=== PATIENT | male | born 1995 | race Caucasian/White ===

== ENCOUNTER 2017-04-04 11:11 | Emergency (ER) | payer MEDICAID ==
[~2017-04-04] VITALS: Ht 177.8 cm; Wt 77.1 kg
--- NOTE | 2017-04-04 11:36 | Emergency Room Report ---
History of Present Illness General Chief Complaint: Lower Extremity Injury Source: Patient Present Illness HPI Patient is a 21-year-old male who presented after increased right ankle pain after injury last night. The patient had been playing basketball when he inverted his right ankle. Patient was having increased pain with ambulation. Patient had no prior ankle injury. He reported having pain to his ankle but did not have any pain to his foot. Pain is sharp in nature. He had no numbness or weakness distally. Allergies: Coded Allergies: No Known Allergies (Unverified , 04/04/17) Patient History Past Medical History: see triage record Reviewed Nursing Documentation: PMH: Agreed, PSxH: Agreed Nursing Documentation-PMH Past Medical History: No Stated History Review of Systems All Other Systems: negative except mentioned in HPI Physical Exam Vital Signs Date Time Temp Pulse Resp B/P Pulse Ox O2 Delivery O2 Flow Rate FiO2 04/04/17 11:18 98.2 78 14 119/67 97 Room Air Sp02 EP Interpretation: reviewed, normal General Appearance: normal inspection, well appearing, no apparent distress, alert, GCS 15 Head: atraumatic ENT: normal ENT inspection, hearing grossly normal, normal voice Neck: normal inspection, full range of motion, supple, no bony tend Respiratory: normal inspection, lungs clear, normal breath sounds, no respiratory distress, no retraction, no wheezing Cardiovascular #1: regular rate, rhythm, no edema Gastrointestinal: normal inspection, normal bowel sounds, non tender, soft, no guarding, no hernia Genitourinary: no CVA tenderness Musculoskeletal: back normal, normal range of motion, swelling - right ankle swelling, slight tenderness to posterior lateral malleolus Neurologic: normal inspection, alert, responsive, speech normal Psychiatric: normal inspection, judgement/insight normal, mood/affect normal Skin: normal inspection, normal color, no rash Medical Decision Making Diagnostic Impression: Primary Impression: Ankle sprain ER Course Patient presented for ankle pain. Differential diagnosis included was not limited to sprain, fracture, dislocation, cellulitis, vascular insufficiency. X -ray imaging of the ankle was ordered. X-ray imaging of the right ankle interpreted by me showed normal bony alignment without a fracture. Soft tissue swelling was noted. The patient was advised rest ice elevation. He is given prescription for ibuprofen. Is advised to followup with primary care physician next few days. Last Vital Signs Date Time Temp Pulse Resp B/P Pulse Ox O2 Delivery O2 Flow Rate FiO2 04/04/17 11:18 98.2 78 14 119/67 97 Room Air Status: improved Disposition: HOME, SELF-CARE Condition: Stable Scripts Ibuprofen* (MOTRIN*) 600 Mg Tablet 600 MG ORAL Q8H Y for For Pain, #30 TAB 0 Refills Prov: Casper Dorsey 04/04/17 Casper Dorsey Apr 04, 2017 11:36
[2017-04-04] MEDS ORDERED: IBUPROFEN600 MG ORAL (12:46)
[2017-04-04 13:31] VITALS: BP 119/67
== END 2017-04-04 13:15 | disposition home or self-care (01) ==
LOC: EMR 12:31
DX: S93.401A Sprain of unspecified ligament of right ankle, initial encounter (principal); X58.XXXA Exposure to other specified factors, initial encounter; Y93.67 Activity, basketball; Y92.9 Unspecified place or not applicable
CPT/HCPCS: 29540; 99283

== ENCOUNTER 2017-04-13 17:46 | Emergency (ER) | payer MEDICAID ==
[~2017-04-13] VITALS: Ht 175.3 cm; Wt 77.1 kg
[~2017-04-13 17:46] MED LIST: IBUPROFEN600 MG ORAL
[2017-04-13] MEDS ORDERED: TRAMADOL HCL50 MG ORAL (18:59)
[2017-04-13 19:19] VITALS: BP 125/64
--- NOTE | 2017-04-14 10:37 | Diagnostic Imaging Report ---
Indication: Right ankle pain Technique: XRAY ANKLE MIN 3VWS RIGHT Comparison: None Findings: There is no acute fracture or dislocation. Bone mineralization is normal. Soft tissue swelling is seen. Impression: No acute osseous abnormality. Soft tissue swelling.
--- NOTE | 2017-04-14 21:00 | Emergency Room Report ---
History of Present Illness General Chief Complaint: Lower Extremity Injury Source: Patient Present Illness HPI The patient is a 21-year-old male presenting with right ankle pain. The patient was seen in this emergency department at the time of injury to weeks prior diagnosed with ankle sprain. Xray showed only soft tissue swelling, no fracture or dislocation. Pain has continued and is now a 7/10 sharp sensation to the outside of the R ankle. Worse with walking. He denies any numbness or tingling. He denies any other injury or symptoms. He states that he has not been taking Motrin for pain Allergies: Coded Allergies: No Known Allergies (Unverified , 04/04/17) Patient History Past Medical History: see triage record Pertinent Family History: none Reviewed Nursing Documentation: PMH: Agreed, PSxH: Agreed Nursing Documentation-PMH Past Medical History: No Stated History Review of Systems All Other Systems: negative except mentioned in HPI Physical Exam Vital Signs Date Time Temp Pulse Resp B/P Pulse Ox O2 Delivery O2 Flow Rate FiO2 04/13/17 17:53 98.1 66 18 125/64 98 Room Air Sp02 EP Interpretation: reviewed, normal General Appearance: no apparent distress, alert, GCS 15, non-toxic Head: normocephalic, atraumatic Eyes: bilateral eye PERRL, bilateral eye normal inspection ENT: hearing grossly normal, normal pharynx, no angioedema, normal voice Musculoskeletal: normal range of motion, no calf tenderness, swelling - R lateral ankle, tender - TTP over the R lateral ankle Neurologic: alert, oriented x3, responsive, motor strength/tone normal, sensory intact, speech normal Psychiatric: judgement/insight normal, memory normal, mood/affect normal, no suicidal/homicidal ideation Skin: normal color, no rash, warm/dry, well hydrated Lymphatic: no adenopathy Procedures Splinting Splinting : Consent: Verbal Location: R ankle Pre-Made Type: KRUPA wrap Pre-Proc Neuro Vasc Exam: normal Post-Proc Neuro Vasc Exam: normal Patient Tolerated: Well Complications: None Medical Decision Making PA Attestation Dr. Dorsey is my supervising physician. Patient management was discussed with my supervising physician Diagnostic Impression: Primary Impression: Right ankle sprain Qualified Codes: S93.401A - Sprain of unspecified ligament of right ankle, initial encounter ER Course The patient is a 21-year-old male presenting with right ankle pain. Ddx considered include but not limited to sprain/strain, fracture, contusion Physical exam: Vitals within normal limits. No apparent distress R ankle: There is tenderness to palpation and edema over the lateral malleolus. Full active range of motion. Sensation intact to light touch. X-ray of the R ankle reveals + STS, no fracture. ankle placed in KRUPA wrap and the patient will use his crutches. RICE instructions given. ER precautions are given. Patient will take Motrin and will follow up with primary care physician. Other X-Ray Diagnostic Results Other X-Ray Diagnostic Results : X-Ray ordered: R ankle # of Views/Limited Vs Complete: 3 View Indication: Pain EP Interpretation: Yes Interpretation: no dislocation, no fractures Impression: Other - + STS Interpreting ER Provider: Casper Dorsey MD PA Scribe Text I am acting as scribe for my supervising physician. My supervising physician's interpretation of the R ankle xrays are there are no fractures, dislocations or soft tissue swelling. Last Vital Signs Date Time Temp Pulse Resp B/P Pulse Ox O2 Delivery O2 Flow Rate FiO2 04/13/17 19:19 98.1 18 125/64 98 Room Air 04/13/17 17:53 66 Status: improved Disposition: HOME, SELF-CARE Condition: Improved Scripts Tramadol Hcl* (ULTRAM*) 50 Mg Tablet 50 MG ORAL Q6H Y for For Pain, #15 TAB 0 Refills Prov: ANNA DUPREE 04/13/17 Referrals: [facility],REFERRING (PCP) Patient Instructions: Ankle Sprain, Acute Ankle Sprain With Phase I Re[facility]- [facility] Additional Instructions: I discussed my findings with the patient. All questions and concerns have been answered. Treatment and medication compliance have been addressed. I advised the patient that they need to follow up with PMD in 3-5 days. Return to ED if pain remains or worsens, numbness or tingling occurs, new rash is noticed, fever is noticed, or if needed for any reason. Patient verbalized understanding of discharge instructions. Please follow up with primary doctor. MRI may be needed if pain continues or worsens ANNA DUPREE Apr 14, 2017 21:00
== END 2017-04-13 19:19 | disposition home or self-care (01) ==
LOC: EMR 19:17
DX: S93.401A Sprain of unspecified ligament of right ankle, initial encounter (principal); X58.XXXA Exposure to other specified factors, initial encounter; Y92.89 Other specified places as the place of occurrence of the external cause
CPT/HCPCS: 99283

== ENCOUNTER 2018-02-28 19:02 | Emergency (ER) | payer MEDICAID ==
[~2018-02-28] VITALS: Ht 177.8 cm; Wt 81.6 kg
[~2018-02-28 19:02] MED LIST changes: +TRAMADOL HCL50 MG ORAL
[2018-02-28] MEDS ORDERED: NKM (19:06)
[2018-02-28] MEDS ORDERED: Ketorolac 30mg Inj IV ONE (19:30)
[2018-02-28 19:48] LABS: APPEARANCE,URINE CLEAR; BILIRUBIN, URINE NEGATIVE (NEGATIVE); COLOR,URINE PALE YELLOW; GLUCOSE, URINE (UA) NEGATIVE (NEGATIVE); KETONES,URINE NEGATIVE (NEGATIVE); LEUKOCYTE ESTERASE ,URINE NEGATIVE (NEGATIVE); NITRITE,URINE NEGATIVE (NEGATIVE); PH,URINE 7 (4.5-8.0); PROTEIN,URINE NEGATIVE (NEGATIVE); UROBILINOGEN,URINE NORMAL MG/DL (0.0-1.0)
[2018-02-28 19:55] LABS: BASOPHILS % (AUTO) 0.9 % (0.0-2.0); EOSINOPHILS % (AUTO) 1.2 % (0.0-3.0); HEMOGLOBIN 15.6 G/DL (14.2-18.0); LYMPHOCYTES % (AUTO) 37.6 % (20.0-45.0); MEAN CORPUSCULAR VOLUME 89 FL (80-99); MONOCYTES % (AUTO) 9.5 % (1.0-10.0); NEUTROPHILS % (AUTO) 50.9 % (45.0-75.0); PLATELET COUNT 156 K/UL (150-450); RED BLOOD COUNT 5.16 M/UL (4.70-6.10); RED CELL DISTRIBUTION WIDTH 11.4 % (11.6-14.8); WHITE BLOOD COUNT 7.3 K/UL (4.8-10.8)
[2018-02-28 20:15] LABS: ANION GAP 4 mmol/L (5-15); BLOOD UREA NITROGEN 11 mg/dL (7-18); CALCIUM 9.1 MG/DL (8.5-10.1); CARBON DIOXIDE 30 MMOL/L (21-32); CHLORIDE 104 MMOL/L (98-107); CREATININE 0.9 MG/DL (0.55-1.30); POTASSIUM 4.3 MMOL/L (3.5-5.1); SODIUM 138 MMOL/L (136-145)
[2018-02-28 20:20] LABS: ALANINE AMINOTRANSFERASE 36 U/L (12-78); ALBUMIN 4.1 G/DL (3.4-5.0); ALBUMIN/GLOBULIN RATIO 1.1 (1.0-2.7); ALKALINE PHOSPHATASE 88 U/L (46-116); ASPARTATE AMINO TRANSFERASE 26 U/L (15-37); BILIRUBIN,TOTAL 0.7 MG/DL (0.2-1.0)
--- NOTE | 2018-02-28 21:31 | Emergency Room Report ---
History of Present Illness General Chief Complaint: Abdominal Pain Source: Patient Present Illness HPI Patient presents with abdominal pain. It began after a basketball game 3 days ago. It is fairly constant, near his belly button, more on R. Rated 8/10, worse when sits up. No NVD, fevers. Appetite has been good. No change in bowels. No dysuria. No medication taken. Never with this pain before. No URI sy. No joint pain. No blood in stool or urine. No testicular pain. No rashes, headache. 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 DDX: diverticulitis, appendicitis, abd wall muscle strain, hernia amongst others. Evaluation with abd film, labs. Treatment with toradol. Based on hx, appendicitis or diverticulitis less likely. ABD film, normal. CBC and CMP normal. Lipase and urine normal. Improved with toradol. Repeat exam with umbilical tenderness - no obvious hernia present, however a consideration versus strain. Discussed these issues with patient and mother. Specifically, will observe at home. If worsened, need to return for repeat labs and possibly CT. They understand this. Patient stable for outpatient observation and treatment. Laboratory Tests Test 02/28/18 19:30 White Blood Count 7.3 K/UL (4.8-10.8) Red Blood Count 5.16 M/UL (4.70-6.10) Hemoglobin 15.6 G/DL (14.2-18.0) Hematocrit 46.0 % (42.0-52.0) Mean Corpuscular Volume 89 FL (80-99) Mean Corpuscular Hemoglobin 30.3 PG (27.0-31.0) Mean Corpuscular Hemoglobin Concent 34.0 G/DL (32.0-36.0) Red Cell Distribution Width 11.4 % (11.6-14.8) L Platelet Count 156 K/UL (150-450) Mean Platelet Volume 13.2 FL (6.5-10.1) H Neutrophils (%) (Auto) 50.9 % (45.0-75.0) Lymphocytes (%) (Auto) 37.6 % (20.0-45.0) Monocytes (%) (Auto) 9.5 % (1.0-10.0) Eosinophils (%) (Auto) 1.2 % (0.0-3.0) Basophils (%) (Auto) 0.9 % (0.0-2.0) Urine Color Pale yellow Urine Appearance Clear Urine pH 7 (4.5-8.0) Urine Specific [place] 1.010 (1.005-1.035) Urine Protein Negative (NEGATIVE) Urine Glucose (UA) Negative (NEGATIVE) Urine Ketones Negative (NEGATIVE) Urine Occult Blood Negative (NEGATIVE) Urine Nitrite Negative (NEGATIVE) Urine Bilirubin Negative (NEGATIVE) Urine Urobilinogen Normal MG/DL (0.0-1.0) Urine Leukocyte Esterase Negative (NEGATIVE) Sodium Level 138 MMOL/L (136-145) Potassium Level 4.3 MMOL/L (3.5-5.1) Chloride Level 104 MMOL/L (98-107) Carbon Dioxide Level 30 MMOL/L (21-32) Anion Gap 4 mmol/L (5-15) L Blood Urea Nitrogen 11 mg/dL (7-18) Creatinine 0.9 MG/DL (0.55-1.30) Estimate Glomerular Filtration Rate > 60 mL/min (>60) Glucose Level 81 MG/DL (74-106) Calcium Level 9.1 MG/DL (8.5-10.1) Total Bilirubin 0.7 MG/DL (0.2-1.0) Aspartate Amino Transferase (AST) 26 U/L (15-37) Alanine Aminotransferase (ALT) 36 U/L (12-78) Alkaline Phosphatase 88 U/L (46-116) Total Protein 7.9 G/DL (6.4-8.2) Albumin 4.1 G/DL (3.4-5.0) Globulin 3.8 g/dL Albumin/Globulin Ratio 1.1 (1.0-2.7) Lipase 134 U/L (73-393) Other X-Ray Diagnostic Results Other X-Ray Diagnostic Results : X-Ray ordered: abd # of Views/Limited Vs Complete: 1 View Indication: Pain Interpretation: nonspecific bowel gas, no sbo, other - no masses Impression: Other Electronically Signed by: Electronically signed by Enoc Arteaga MD Last Vital Signs Date Time Temp Pulse Resp B/P (MAP) Pulse Ox O2 Delivery O2 Flow Rate FiO2 02/28/18 21:56 97.7 60 17 123/55 98 Room Air 97.7 Status: improved Disposition: HOME, SELF-CARE Condition: Improved Scripts Ibuprofen* (MOTRIN*) 600 Mg Tablet 600 MG ORAL Q6H PRN for For Pain, #20 TAB Prov: Enoc Arteaga M.D. 02/28/18 Acetaminophen (Tylenol) 325 Mg Tablet 650 MG ORAL Q6H PRN for Prn Pain/Headache/Temp > 101, #20 TAB 0 Refills Prov: Enoc Arteaga M.D. 02/28/18 Referrals: NON PHYSICIAN (PCP) Enoc Arteaga M.D. Feb 28, 2018 21:31
[2018-02-28] MEDS ORDERED: IBUPROFEN600 MG ORAL (21:37)
[2018-02-28] MEDS ORDERED: TYLENOL325 MG ORAL (21:37)
[2018-02-28 21:55] VITALS: BP 123/55
[2018-02-28 21:56] VITALS: BP 123/55
--- NOTE | 2018-03-01 11:21 | Diagnostic Imaging Report ---
Indication: Abdominal pain Comparison: None Single view of the abdomen obtained Findings: Bowel gas pattern is nonspecific. No mass, ectopic calcifications, or abnormal gas collections are identified. The bones are unremarkable. Impression: No acute findings
== END 2018-02-28 21:56 | disposition home or self-care (01) ==
LOC: EMR 19:30
DX: R10.33 Periumbilical pain (principal)
CPT/HCPCS: 36415; 74018; 80053; 81003; 83690; 85025; 96361; 96374; 99283; J1885; 96360